=== PATIENT | male | born 1980 | race Caucasian/White ===

== ENCOUNTER 2020-10-28 16:59 | Emergency (ER) | payer BC ==
[~2020-10-28] VITALS: Ht 172.7 cm; Wt 99.8 kg
[2020-10-28] MEDS ORDERED: propofol 10mg/ml 20ml vial IV ONE (17:15)
[2020-10-28] MEDS ORDERED: fentaNYL/PF 50MCG/1 ML 2ML syringe IV ONE (19:00)
[2020-10-28] MEDS ORDERED: HYDROcodone/acetaminophen 10/325mg tab PO ONE (19:00)
[2020-10-28] MEDS ORDERED: HYDR-3972 PO (19:01)
[2020-10-28 19:14] VITALS: BP 213/126
== END 2020-10-28 19:48 | disposition home or self-care (01) ==
LOC: ER 17:00
DX: S82.851A Displaced trimalleolar fracture of right lower leg, initial encounter for closed fracture (principal); S93.04XA Dislocation of right ankle joint, initial encounter; S80.212A Abrasion, left knee, initial encounter; Z79.899 Other long term (current) drug therapy; V00.131A Fall from skateboard, initial encounter; Y93.51 Activity, roller skating (inline) and skateboarding; Y92.89 Other specified places as the place of occurrence of the external cause; Y99.8 Other external cause status
CPT/HCPCS: 27818; 73600; 96374; 99152; 99285; J3010; 99153

== ENCOUNTER 2020-11-14 07:24 | Inpatient (IN) | payer BC ==
[2020-11-10 15:19] LABS: BASOPHILS % (AUTO) 0.5 % (0-1); EOSINOPHILS # (AUTO) 0.1 X10'3 (0-0.9); EOSINOPHILS % (AUTO) 1.7 % (0-6); LYMPHOCYTES # (AUTO) 1.8 X10'3 (1.1-4.8); MEAN CORPUSCULAR HEMOGLOBIN 28.4 PG (27.0-31.0); MEAN CORPUSCULAR HGB CONC 33.4 g/dL (33.0-36.5); MEAN CORPUSCULAR VOLUME 85.1 FL (78-98); MEAN PLATELET VOLUME 7.9 FL (7.4-10.4); MONOCYTES # (AUTO) 0.6 X10'3 (0-0.9); MONOCYTES % (AUTO) 7.6 % (2-12); NEUTROPHILS # (AUTO) 5.8 X10'3 (1.8-7.7); NEUTROPHILS % (AUTO) 69.2 % (42-75); PRE OP HEMATOCRIT 48.4 % (42.0-52.0); PRE OP HEMOGLOBIN 16.2 g/dL (14.0-17.9); PRE OP PLATELET COUNT 339 X10'3 (140-440); RED BLOOD COUNT 5.69 X10'6 (4.70-6.10)
[2020-11-10 15:35] LABS: ALBUMIN 4.4 G/DL (3.4-5.0); ALBUMIN/GLOBULIN RATIO 1.2 (1.1-1.5); ALKALINE PHOSPHATASE 97 IU/L (46-116); BLOOD UREA NITROGEN 21 MG/DL (7-18); BUN/CREATININE RATIO 16.7 (5.4-32.0); CALCIUM 9.8 MG/DL (8.5-10.1); CHLORIDE 103 MMOL/L (99-107); CREATININE 1.26 MG/DL (0.60-1.10); PRE OP ALT 58 U/L (30-65); PRE OP ANION GAP 9 (8-16); PRE OP AST 25 U/L (10-37); PRE OP BILIRUB, TOTAL 1.1 MG/DL (0.0-1.0); PRE OP GLUCOSE 97 MG/DL (70-104); PRE OP POTASSIUM 3.9 MMOL/L (3.4-5.1); PRE OP SODIUM 138 MMOL/L (135-145); TOTAL CARBON DIOXIDE 26.3 MMOL/L (24-32); TOTAL PROTEIN 8.2 G/DL (6.4-8.2); eGFR 63 ML/MIN
[2020-11-14] VITALS (32 sets, daily range): BP systolic 134–206; BP diastolic 89–136
[~2020-11-14] VITALS: Ht 172.7 cm; Wt 96.0 kg
[~2020-11-14 07:24] MED LIST: ASCO-134 PO; GREE150C PO; MULT-1085 PO; OMEG-79 PO; cefazolin/dext.iso 2gm/100ml IV ONE; famotidine 20mg tablet PO ONE; ringers solution, lacted 1,000 ML IV SCH
[2020-11-14] MEDS ORDERED: BUPIVAcaine/PF 2.5 mg/ml (0.25%) 30ml vial ONE (08:36)
[2020-11-14] MEDS ORDERED: diazepam 5mg tablet PO ONE (09:45)
[2020-11-14] MEDS ORDERED: hydrALAZINE 20mg/ml inj. IV ONE ×3 (10:45→10:49)
[2020-11-14] MEDS ORDERED: sevoflurane 250ml liquid IH ONE (12:58)
[2020-11-14] MEDS ORDERED: fentaNYL/PF 50MCG/1 ML 2ML syringe ONE (13:00)
[2020-11-14] MEDS ORDERED: MIDAZolam 1 MG/ML 5ML VIAL ONE (13:01)
[2020-11-14] MEDS ORDERED: labetalol 20mg/4ml (5mg/ml) syringe IV ONE (13:03)
[2020-11-14] MEDS ORDERED: propofol inj 20 ML IV ONE (13:04)
[2020-11-14] MEDS ORDERED: ROPIVAcaine 0.5% (5mg/ml) 30ml vial ONE (13:10)
[2020-11-14] MEDS ORDERED: morphine 2 MG/ML inj. syringe IV PRN ×3 (13:35→18:05)
[2020-11-14] MEDS ORDERED: ringers solution, lacted 1,000 ML IV SCH (13:35)
[2020-11-14] MEDS ORDERED: ondansetron/PF 4mg/2ml inj IV PRN ×2 (13:35→18:05)
[2020-11-14] MEDS ORDERED: meperidine/PF 25mg/ml syringe IV PRN ×3 (13:35)
[2020-11-14] MEDS ORDERED: morphine 4 MG/ML inj SYRINge IV PRN (13:35)
--- NOTE | 2020-11-14 13:50 | NUR ---
Received from OR via PACU, accompanied by Anesthesiologist RICHARD and report given by Anesthesiolgist. PT DROWSY. OXYGENATING WELL ON 10 LPM O2 VIA MASK, NO RESP DISTRESS NOTED. PT STATES HIS R FOOT DOESNT HURT BUT HE HAS A BAD HEADAC HE. NO NAUSEA. LARGE SPLINT TO RLE COVERED WITH MARK, CDI. TOES PWD. RLE ELEVATED. PT BP IS OUT OF CONTROL, NOTIFIED DR RAMOS. WILL TREAT NEEDED AND CONTINUE TO MONITOR.
[2020-11-14] MEDS: hydrALAZINE 20mg/ml inj. IV PRN ×4 (14:42→18:06)
[2020-11-14] MEDS: labetalol 5mg/ml 20ml inj. IV PRN ×4 (15:00→16:15)
--- NOTE | 2020-11-14 17:27 | NUR ---
TOOK OVER PATIENTS CARE FROM TANIYA STARR. Addendum: 11/14/20 at 1728 by Velia Berry RN Amended: Links added.
[2020-11-14] MEDS: amLODIPine 5mg tablet PO SCH (18:05)
[2020-11-14] MEDS ORDERED: acetaminophen 325mg tablet PO PRN ×2 (18:05)
[2020-11-14] MEDS ORDERED: acetaminophen 650mg rectal suppository RC PRN (18:05)
[2020-11-14] MEDS ORDERED: magnesium 2GM in 50ml NS 50 ML IV PRN (18:05)
[2020-11-14] MEDS ORDERED: bisacodyl 10mg suppository rectal RC PRN (18:05)
[2020-11-14] MEDS ORDERED: magnesium Cl slow-release 64mg tablet PO PRN (18:05)
[2020-11-14] MEDS ORDERED: mag hydrox/Alum hydrox/simeth 30ml oral suspension PO PRN (18:05)
[2020-11-14] MEDS ORDERED: potassium Cl 20 mEq SR tablet PO PRN ×2 (18:05)
[2020-11-14] MEDS ORDERED: magnesium hydroxide 30ml (MOM) UD suspension PO PRN (18:05)
[2020-11-14] MEDS ORDERED: HYDROmorphone inj. 0.5 MG/0.5 ML DISP.SYRIN IV PRN (18:05)
[2020-11-14] MEDS ORDERED: PERFLUTREN PROTEIN-A MICROSPHR (Optison) 0.22 MG/ML 3ML VIAL IV ONE (18:05)
[2020-11-14] MEDS ORDERED: hydrALAZINE 20mg/ml inj. IV PRN (18:05)
[2020-11-14] MEDS ORDERED: magnesium 4gm in 100ml NS 100 ML IV PRN (18:05)
[2020-11-14] MEDS ORDERED: diphenhydrAMINE 25mg capsule PO PRN (18:05)
[2020-11-14] MEDS: chlorthalidone 25mg tablet PO SCH (18:05)
[2020-11-14] MEDS ORDERED: potassium Cl 40MEQ/1/2NS 520ml 520 ML IV PRN ×2 (18:05)
--- NOTE | 2020-11-14 18:34 | NUR ---
Patient experiencing increased anxiety. MD notified (Dr. Rivera), per MD Ativan 1mg q6hr PRN ordered. Will cont.. to monitor patient per hospital policy.
--- NOTE | 2020-11-14 18:49 | NUR ---
PT HAS HAD MAX DOSES OF LABETALOL AND HYDRALAZINE, BP CONTINUES TO BE UNMANAGEABLE AND UNSAFE. NOTIFIED DR BENITEZ AND DR RAMOS. CONSULT BY DR THOMASON, PT ADMITTED TO PCU. TROPONINS DRAWN. EKG ABNORMAL WITH T WAVE CHANGES NOTED. UNCHANGED FROM PREOP EKG. PT HAD EMESIS, FEELS BETTER NOW. HEADACHE WAS RESOLVING BUT IS NOW COMING BACK, PT STATES IT IS PRETTY BAD.
[2020-11-14 19:04] LABS: CLARITY,URINE CLEAR (Clear); COLOR,URINE YELLOW (Yellow); GLUCOSE, URINE NEGATIVE (Neg); KETONES,URINE NEGATIVE (Neg); LEUKOCYTE ESTERASE ,URINE NEGATIVE (Neg); NITRITES, URINE NEGATIVE (Neg); OCCULT BLOOD,URINE NEGATIVE (Neg); PH,URINE 6.5 (4.8-8.0); PROTEIN,URINE NEGATIVE (Neg); UA COLLECTION TYPE NON-SPECIFIED; UROBILINOGEN,URINE 0.2 E.U/dL (0.2-1.0)
--- NOTE | 2020-11-14 19:13 | NUR ---
BP 178/125, PT C/O WORSENING HEADACHE. NOTIFIED DR THOMASON. HE WILL ORDER A DRIP FOR PCU TO CONTROL HIS BP.
[2020-11-14 19:17] LABS: URINE AMPHETAMINE SCREEN NEGATIVE (Neg); URINE BARBITUATE SCREEN NEGATIVE (Neg); URINE BENZODIAZEPINES SCREEN POSITIVE (Neg); URINE CANNABINOID SCREEN NEGATIVE (Neg); URINE COCAINE SCREEN NEGATIVE (Neg); URINE METHADONE SCREEN NEGATIVE (Neg); URINE OPIATE SCREEN POSITIVE (Neg); URINE PHENCYCLIDINE SCREEN NEGATIVE (Neg)
[2020-11-14] MEDS: metoprolol succinate 25mg (24-HOUR) SR. Tablet PO SCH (19:25)
[2020-11-14] MEDS: heparin, porcine 5000 units/ml vial SQ SCH (20:00)
[2020-11-14] MEDS: K and/or MAG REPLACEMENT MC SCH (20:00)
--- NOTE | 2020-11-14 20:30 | NUR ---
PATIENT TRANSFERRED FROM PACU IN STABLE CONDITION AFTER REPORT GIVEN TO NURSE TAKING OVER PATIENTS CARE. PATIENT TANSPORTED VIA AMAIRANI WITH TANIYA. Addendum: 11/14/20 at 2101 by Velia Berry RN Amended: Links added.
[2020-11-14] MEDS ORDERED: LORazepam 2 mg/ml vial IV PRN (20:35)
--- NOTE | 2020-11-14 20:40 | NUR ---
I have received report via telephone from DAVID RN in PAS unit and had the opportunity to ask questions over the phone before transfer to Tele.
--- NOTE | 2020-11-14 20:50 | NUR ---
Patient arrived to the floor via gurney with Kecia RN from PAS unit in stable condition, patients mother is at bedside. All personal belongings are in patient assigned closet. Will cont.. to monitor per hospital policy.
[2020-11-14] MEDS ORDERED: temazepam 15mg capsule PO PRN (21:00)
[2020-11-14] MEDS: niCARDipine-NS 40mg/200ml IVPB 200 ML IV SCH (21:34)
[2020-11-14] MEDS ORDERED: metoprolol tartrate 1mg/ml inj IV PRN (21:35)
[2020-11-14] MEDS ORDERED: nitroGLYCERIN 0.4mg SUBLingual tab SL PRN (21:35)
[2020-11-14] MEDS ORDERED: aminophylline 250mg/10ml inj. IV PRN (21:35)
[2020-11-14] MEDS ORDERED: regadenoson 0.4mg/5ml syringe IV ONE (21:35)
--- NOTE | 2020-11-14 23:01 | NUR ---
(Dr. Rivera) notified patients BP 134/90. Per Nicardipine drip to be turned off. Will cont.. to monitor per hospital policy.
[2020-11-14] MEDS: HYDROcodone/acetaminophen 10/325mg tab PO PRN (23:17)
--- NOTE | 2020-11-14 23:53 | NUR ---
(Dr. Rivera) notified Patients BP increased to 172/109 in 52mins. Per MD Nicardipine drip to be started back up at 12.5mls/hr. Will cont.. to monitor per hospital policy.
[2020-11-15] VITALS (21 sets, daily range): BP systolic 127–161; BP diastolic 66–99
--- NOTE | 2020-11-15 00:05 | NUR ---
Nicardipine drip started at 2130 @25ml/hr per protocol. Patients SBP 187, DBP 111. Will cont.. to monitor per hospital policy.
[2020-11-15 01:44] LABS: BASOPHILS % (AUTO) 0.3 % (0-1); EOSINOPHILS % (AUTO) 0.1 % (0-6); HEMATOCRIT 43.3 % (42.0-52.0); HEMOGLOBIN 14.8 g/dl (14.0-17.9); LYMPHOCYTES # (AUTO) 0.8 X10'3 (1.1-4.8); LYMPHOCYTES % (AUTO) 8.8 % (21-51); MEAN CORPUSCULAR HEMOGLOBIN 28.9 PG (27.0-31.0); MEAN CORPUSCULAR HGB CONC 34.2 g/dL (33.0-36.5); MEAN CORPUSCULAR VOLUME 84.6 FL (78-98); MEAN PLATELET VOLUME 8.2 FL (7.4-10.4); MONOCYTES # (AUTO) 0.4 X10'3 (0-0.9); MONOCYTES % (AUTO) 4.8 % (2-12); NEUTROPHILS # (AUTO) 7.9 X10'3 (1.8-7.7); PLATELET COUNT 258 X10'3 (140-440); RED BLOOD COUNT 5.12 X10'6 (4.70-6.10); RED CELL DISTRIBUTION WIDTH 14.9 % (11.5-14.5); WHITE BLOOD COUNT 9.2 X10'3 (4.5-11.0)
[2020-11-15 01:50] LABS: ALANINE AMINOTRANSFERASE 44 U/L (12-78); ALBUMIN 3.8 G/DL (3.4-5.0); ALBUMIN/GLOBULIN RATIO 1.1 (1.1-1.5); ALKALINE PHOSPHATASE 83 IU/L (46-116); ANION GAP 10 (8-16); ASPARTATE AMINO TRANSFERASE 21 U/L (10-37); BLOOD UREA NITROGEN 18 MG/DL (7-18); BUN/CREATININE RATIO 19.4 (5.4-32.0); CALCIUM 8.5 MG/DL (8.5-10.1); CHLORIDE 101 MMOL/L (99-107); CREATININE 0.93 MG/DL (0.60-1.10); GLUCOSE 134 MG/DL (70-104); POTASSIUM 3.6 MMOL/L (3.5-5.1); SODIUM 134 MMOL/L (135-145); TOTAL PROTEIN 7.2 G/DL (6.4-8.2); eGFR 90 ML/MIN
[2020-11-15 01:57] LABS: CHOL/HDL RATIO 4.4 (0.00-4.99); CHOLESTEROL 154 MG/DL (0-200); HDL CHOLESTEROL 35 MG/DL (35-60); LDL CHOLESTEROL 107 MG/DL (50-100); PHOSPHORUS 3.4 MG/DL (2.3-4.5); TRIGLYCERIDES 73 MG/DL (20-135)
[2020-11-15] MEDS: HYDROcodone/acetaminophen 10/325mg tab PO PRN ×3 (03:37→12:56)
--- NOTE | 2020-11-15 06:12 | NUR ---
Problems reprioritized. Patient report given, questions answered & plan of care reviewed with Adriana MONAHAN.
--- NOTE | 2020-11-15 06:20 | NUR ---
Patient in room PCU 3025. I have received report from Jocelyn MONAHAN and had the opportunity to ask questions and assume patient care.
--- NOTE | 2020-11-15 06:36 | NUR ---
Problems reprioritized. Patient report given, questions answered & plan of care reviewed with Adriana Moraes RN.
[2020-11-15] MEDS: multivitamins, therapeutics tablet PO SCH (07:51)
[2020-11-15] MEDS: ascorbic acid 500mg tablet PO SCH (07:52)
[2020-11-15] MEDS: amLODIPine 5mg tablet PO SCH (07:52)
[2020-11-15] MEDS: metoprolol succinate 25mg (24-HOUR) SR. Tablet PO SCH (07:52)
[2020-11-15] MEDS: heparin, porcine 5000 units/ml vial SQ SCH ×2 (07:54→19:44)
[2020-11-15] MEDS: K and/or MAG REPLACEMENT MC SCH ×2 (08:00→19:44)
[2020-11-15] MEDS: niCARDipine-NS 40mg/200ml IVPB 200 ML IV SCH ×2 (11:08→11:50)
--- NOTE | 2020-11-15 11:51 | NUR ---
Paged Pharmacy Please send pts Chlorthalidone Thank you
[2020-11-15] MEDS: pantoprazole 40 MG vial IV SCH (12:56)
[2020-11-15] MEDS: chlorthalidone 25mg tablet PO SCH (12:56)
--- NOTE | 2020-11-15 13:14 | NUR ---
Paged Dr. Diaz PAGER ID: [phone] MESSAGE: Re: Jaren Gunter [id number]. Lab called re, orders from Giovanny .Please Advise Adriana MONAHAN [phone]
[2020-11-15] MEDS ORDERED: iohexol 300mg/ml 100ml inj. ONE (13:55)
[2020-11-15] MEDS ORDERED: labetalol 100mg tablet PO PRN (15:50)
[2020-11-15] MEDS ORDERED: minoxidil 2.5mg tablet PO PRN (15:50)
[2020-11-15 16:19] LABS: TOTAL PROTEIN,URINE RANDOM 15.1 MG/DL
[2020-11-15 16:33] LABS: PHOS, URINE RANDOM 143.8 MG/DL
[2020-11-15 17:17] LABS: UA EOSINOPHILS NO EOS /HPF
--- NOTE | 2020-11-15 18:20 | NUR ---
Patient in room PCU 3025. I have received report from TANIYA AGUYAO and had the opportunity to ask questions and assume patient care.
--- NOTE | 2020-11-15 18:31 | NUR ---
Problems reprioritized. Patient report given, questions answered & plan of care reviewed with Cece MONAHAN .
[2020-11-16] MEDS: niCARDipine-NS 40mg/200ml IVPB 200 ML IV SCH ×2 (01:46→10:58)
[2020-11-16 02:00] VITALS: BP 147/87
[2020-11-16] MEDS: HYDROcodone/acetaminophen 10/325mg tab PO PRN ×2 (05:41→21:06)
--- NOTE | 2020-11-16 06:03 | NUR ---
Problems reprioritized. Patient report given, questions answered & plan of care reviewed with TANIYA CARLTON.
[2020-11-16 06:06] LABS: BASOPHILS % (AUTO) 0.5 % (0-1); EOSINOPHILS # (AUTO) 0.1 X10'3 (0-0.9); EOSINOPHILS % (AUTO) 1.4 % (0-6); HEMATOCRIT 45.4 % (42.0-52.0); HEMOGLOBIN 15.4 g/dl (14.0-17.9); LYMPHOCYTES # (AUTO) 1.3 X10'3 (1.1-4.8); LYMPHOCYTES % (AUTO) 18.3 % (21-51); MEAN CORPUSCULAR HGB CONC 33.9 g/dL (33.0-36.5); MEAN CORPUSCULAR VOLUME 85.5 FL (78-98); MEAN PLATELET VOLUME 8.1 FL (7.4-10.4); MONOCYTES # (AUTO) 0.7 X10'3 (0-0.9); MONOCYTES % (AUTO) 9.6 % (2-12); NEUTROPHILS # (AUTO) 5.1 X10'3 (1.8-7.7); NEUTROPHILS % (AUTO) 70.2 % (42-75); PLATELET COUNT 275 X10'3 (140-440); RED BLOOD COUNT 5.31 X10'6 (4.70-6.10); RED CELL DISTRIBUTION WIDTH 15.1 % (11.5-14.5); WHITE BLOOD COUNT 7.2 X10'3 (4.5-11.0)
[2020-11-16 06:34] LABS: ALANINE AMINOTRANSFERASE 40 U/L (12-78); ALBUMIN 3.9 G/DL (3.4-5.0); ALBUMIN/GLOBULIN RATIO 1.1 (1.1-1.5); ALKALINE PHOSPHATASE 86 IU/L (46-116); ANION GAP 9 (8-16); ASPARTATE AMINO TRANSFERASE 18 U/L (10-37); BILIRUBIN,TOTAL 2.3 MG/DL (0.1-1.0); BLOOD UREA NITROGEN 17 MG/DL (7-18); BUN/CREATININE RATIO 18.5 (5.4-32.0); CALCIUM 8.7 MG/DL (8.5-10.1); CHLORIDE 104 MMOL/L (99-107); CREATININE 0.92 MG/DL (0.60-1.10); GLUCOSE 100 MG/DL (70-104); MAGNESIUM 2.2 MG/DL (1.5-2.4); PHOSPHORUS 2.9 MG/DL (2.3-4.5); POTASSIUM 3.7 MMOL/L (3.5-5.1); SODIUM 138 MMOL/L (135-145); TOTAL CARBON DIOXIDE 25.4 MMOL/L (24-32); TOTAL PROTEIN 7.3 G/DL (6.4-8.2); eGFR > 90 ML/MIN
[2020-11-16 07:00] VITALS: BP 155/103
[2020-11-16] MEDS: pantoprazole 40 MG vial IV SCH (07:21)
[2020-11-16] MEDS: K and/or MAG REPLACEMENT MC SCH ×2 (07:21→20:00)
[2020-11-16] MEDS: ascorbic acid 500mg tablet PO SCH (07:21)
[2020-11-16] MEDS: multivitamins, therapeutics tablet PO SCH (07:21)
[2020-11-16] MEDS: metoprolol succinate 25mg (24-HOUR) SR. Tablet PO SCH (07:22)
[2020-11-16] MEDS: heparin, porcine 5000 units/ml vial SQ SCH ×2 (07:22→20:12)
[2020-11-16 11:00] VITALS: BP 149/98
[2020-11-16] MEDS: HYDROcodone/acetaminophen 5mg/325mg tablet PO PRN (11:08)
[2020-11-16] MEDS ORDERED: hydrALAZINE 20mg/ml inj. IV PRN (11:45)
[2020-11-16] MEDS ORDERED: hydrALAZINE 20mg/ml inj. IV ONE (11:45)
[2020-11-16] MEDS: amLODIPine 5mg tablet PO SCH (11:58)
[2020-11-16 15:00] VITALS: BP 129/81
[2020-11-16] MEDS ORDERED: propranolol 10mg tablet PO ONE (15:00)
[2020-11-16 18:00] VITALS: BP 147/95
--- NOTE | 2020-11-16 18:20 | NUR ---
Patient in room PCU 3025. I have received report from TANIYA CARLTON and had the opportunity to ask questions and assume patient care.
[2020-11-16] MEDS: propranolol 10mg tablet PO SCH (20:12)
[2020-11-16 22:00] VITALS: BP 134/92
[2020-11-17] MEDS: HYDROcodone/acetaminophen 10/325mg tab PO PRN (01:51)
[2020-11-17 02:00] VITALS: BP 143/93
--- NOTE | 2020-11-17 06:21 | NUR ---
Problems reprioritized. Patient report given, questions answered & plan of care reviewed with TANIYA CARLTON.
[2020-11-17 07:00] LABS: BASOPHILS % (AUTO) 0.6 % (0-1); EOSINOPHILS # (AUTO) 0.1 X10'3 (0-0.9); EOSINOPHILS % (AUTO) 2.1 % (0-6); HEMATOCRIT 45.3 % (42.0-52.0); HEMOGLOBIN 15.4 g/dl (14.0-17.9); LYMPHOCYTES # (AUTO) 1.7 X10'3 (1.1-4.8); MEAN CORPUSCULAR HEMOGLOBIN 28.9 PG (27.0-31.0); MEAN CORPUSCULAR HGB CONC 33.9 g/dL (33.0-36.5); MEAN CORPUSCULAR VOLUME 85.1 FL (78-98); MEAN PLATELET VOLUME 8.1 FL (7.4-10.4); MONOCYTES # (AUTO) 0.5 X10'3 (0-0.9); MONOCYTES % (AUTO) 9.7 % (2-12); NEUTROPHILS % (AUTO) 55.6 % (42-75); PLATELET COUNT 248 X10'3 (140-440); RED BLOOD COUNT 5.32 X10'6 (4.70-6.10); RED CELL DISTRIBUTION WIDTH 14.8 % (11.5-14.5); WHITE BLOOD COUNT 5.4 X10'3 (4.5-11.0)
[2020-11-17 07:04] VITALS: BP 135/76
[2020-11-17] MEDS: propranolol 10mg tablet PO SCH (07:17)
[2020-11-17 07:18] VITALS: BP_SYST 135
[2020-11-17] MEDS: amLODIPine 5mg tablet PO SCH (07:18)
[2020-11-17] MEDS: multivitamins, therapeutics tablet PO SCH (07:18)
[2020-11-17] MEDS: ascorbic acid 500mg tablet PO SCH (07:18)
[2020-11-17] MEDS: heparin, porcine 5000 units/ml vial SQ SCH (07:19)
[2020-11-17] MEDS: HYDROcodone/acetaminophen 5mg/325mg tablet PO PRN (07:22)
[2020-11-17 07:24] LABS: ALANINE AMINOTRANSFERASE 38 U/L (12-78); ALBUMIN 3.7 G/DL (3.4-5.0); ALBUMIN/GLOBULIN RATIO 1.1 (1.1-1.5); ALKALINE PHOSPHATASE 82 IU/L (46-116); ANION GAP 8 (8-16); ASPARTATE AMINO TRANSFERASE 19 U/L (10-37); BLOOD UREA NITROGEN 19 MG/DL (7-18); BUN/CREATININE RATIO 18.6 (5.4-32.0); CALCIUM 8.8 MG/DL (8.5-10.1); CHLORIDE 104 MMOL/L (99-107); CREATININE 1.02 MG/DL (0.60-1.10); GLUCOSE 88 MG/DL (70-104); MAGNESIUM 2.1 MG/DL (1.5-2.4); PHOSPHORUS 3.4 MG/DL (2.3-4.5); POTASSIUM 3.8 MMOL/L (3.5-5.1); SODIUM 138 MMOL/L (135-145); TOTAL CARBON DIOXIDE 26.3 MMOL/L (24-32); TOTAL PROTEIN 7.1 G/DL (6.4-8.2); eGFR 80 ML/MIN
[2020-11-17] MEDS ORDERED: pantoprazole 40mg Tablet.DR PO SCH (07:30)
[2020-11-17] MEDS: K and/or MAG REPLACEMENT MC SCH (08:00)
[2020-11-17] MEDS ORDERED: PROP10TA10 PO (08:24)
[2020-11-17] MEDS ORDERED: NOR5T PO (08:24)
[2020-11-17] MEDS ORDERED: PANT40TA54 PO (08:24)
--- NOTE | 2020-11-17 10:38 | NUR ---
Patient was discharged at 0945 home with mom. Patient reviewed packet before signing, all belongings sent with patient. New RX faxed to [facility], patient was wheeled down by staff and left via private vehicle.
--- NOTE | 2020-11-17 11:15 | NUR ---
promotional table spacer PAGER ID: [phone] MESSAGE: Christian [phone]. Pt was discharged and called regarding a [facility] as he had been taking them here for pain and was not discharged with them. Please adviseSandra [phone]
[2020-11-17] MEDS ORDERED: HYDR-3965 PO (15:16)
== END 2020-11-17 09:48 | disposition home or self-care (01) | DRG 305 ==
LOC: PAS 07:24 → PCU 3S 08:30
PROVIDERS: ADMIT Orthopaedic Surgery; ATTEND Orthopaedic Surgery
PROC: 2W0SX1Z Change Splint on Right Foot (ICD-10-PCS; 2020-11-14)
PROC: 4A02XM4 Measurement of Cardiac Total Activity, External Approach (ICD-10-PCS; principal; 2020-11-15)
PROC: 3E073KZ Introduction of Other Diagnostic Substance into Coronary Artery, Percutaneous Approach (ICD-10-PCS; 2020-11-15)
PROC: BW211ZZ Computerized Tomography (CT Scan) of Abdomen and Pelvis using Low Osmolar Contrast (ICD-10-PCS; 2020-11-15)
DX: I16.1 Hypertensive emergency (principal); E11.9 Type 2 diabetes mellitus without complications; E78.00 Pure hypercholesterolemia, unspecified; E87.6 Hypokalemia; F41.9 Anxiety disorder, unspecified; I15.9 Secondary hypertension, unspecified; E05.90 Thyrotoxicosis, unspecified without thyrotoxic crisis or storm; R77.8 Other specified abnormalities of plasma proteins; Z20.822 Contact with and (suspected) exposure to COVID-19; Z79.899 Other long term (current) drug therapy; Z80.8 Family history of malignant neoplasm of other organs or systems; Z82.49 Family history of ischemic heart disease and other diseases of the circulatory system; S93.04XD Dislocation of right ankle joint, subsequent encounter
CPT/HCPCS: 93306; Z7506; 36415; 70450; 71045; 74178; 76536; 78452; 80053; 80061; 80305; 81003; 82043; 82384; 82570; 82948; 83036; 83735; 84100; 84105; 84133; 84145; 84156; 84244; 84300; 84439; 84443; 84480; 84484; 84540; 84585; 85025; 87081; 87207; 87635; 93005; 93017; A4215; A4618; A6449; A7000; A9500; C9113; G0378; J0280; J0360; J1644; J2060; J2175; J2250; J2270; J2704; J2785; J2795; J3010; J3490; J7120; Q9967

== ENCOUNTER → 2020-12-03 | Day surgery (SDC) | payer BC ==
[2020-12-01 11:56] LABS: BASOPHILS % (AUTO) 0.6 % (0-1); EOSINOPHILS # (AUTO) 0.1 X10'3 (0-0.9); EOSINOPHILS % (AUTO) 2.1 % (0-6); LYMPHOCYTES # (AUTO) 1.6 X10'3 (1.1-4.8); LYMPHOCYTES % (AUTO) 22.6 % (21-51); MEAN CORPUSCULAR HEMOGLOBIN 28.8 PG (27.0-31.0); MEAN CORPUSCULAR HGB CONC 33.9 g/dL (33.0-36.5); MEAN CORPUSCULAR VOLUME 85.1 FL (78-98); MEAN PLATELET VOLUME 8.5 FL (7.4-10.4); MONOCYTES # (AUTO) 0.6 X10'3 (0-0.9); MONOCYTES % (AUTO) 7.9 % (2-12); NEUTROPHILS # (AUTO) 4.6 X10'3 (1.8-7.7); NEUTROPHILS % (AUTO) 66.8 % (42-75); PRE OP HEMATOCRIT 48.4 % (42.0-52.0); PRE OP HEMOGLOBIN 16.4 g/dL (14.0-17.9); PRE OP PLATELET COUNT 264 X10'3 (140-440); RED BLOOD COUNT 5.68 X10'6 (4.70-6.10); RED CELL DISTRIBUTION WIDTH 14.7 % (11.5-14.5)
[2020-12-01 12:00] LABS: ALBUMIN 4.3 G/DL (3.4-5.0); ALBUMIN/GLOBULIN RATIO 1.2 (1.1-1.5); ALKALINE PHOSPHATASE 95 IU/L (46-116); BLOOD UREA NITROGEN 18 MG/DL (7-18); BUN/CREATININE RATIO 13.4 (5.4-32.0); CALCIUM 9.2 MG/DL (8.5-10.1); CHLORIDE 105 MMOL/L (99-107); CREATININE 1.34 MG/DL (0.60-1.10); PRE OP ANION GAP 9 (8-16); PRE OP AST 29 U/L (10-37); PRE OP BILIRUB, TOTAL 1.9 MG/DL (0.0-1.0); PRE OP GLUCOSE 97 MG/DL (70-104); PRE OP POTASSIUM 4.2 MMOL/L (3.4-5.1); PRE OP SODIUM 140 MMOL/L (135-145); TOTAL CARBON DIOXIDE 26.3 MMOL/L (24-32); TOTAL PROTEIN 7.8 G/DL (6.4-8.2); eGFR 59 ML/MIN
[2020-12-01 12:04] LABS: PRE OP ALT 96 U/L (30-65)
[~2020-12-03] VITALS: Ht 172.7 cm; Wt 95.9 kg
[2020-12-03] VITALS (10 sets, daily range): BP systolic 130–158; BP diastolic 85–106
[~2020-12-03] MED LIST changes: +0.9 % SODIUM CHLORIDE 10 ML VIAL ONE; +AMLO5TAB16 PO; +BUPIVAcaine/PF 2.5 mg/ml (0.25%) 30ml vial ONE; +DOCUMENT DATE & TIME OF BETA-BLOCKER PO ONE; +LIDOcaine 2% (20mg/ml) 5ml vial ONE; +LISI20TA28 PO; +PANT40TA54 PO; +PROP10TA10 PO; +ROPIVAcaine 0.5% (5mg/ml) 30ml vial ONE; +acetaminophen 1,000mg/100ml IV 100 ML IV PRN; +dexamethasone sod phosphate 4mg/ml inj. ONE; +fentaNYL /PF 50mcg/ml 5ml ampule ONE; +hydrALAZINE 20mg/ml inj. IV PRN; +ketorolac trometh. 30mg/ml inj. IV ONE; +labetalol 20mg/4ml (5mg/ml) syringe IV PRN; +meperidine/PF 25mg/ml syringe IV PRN; +midazolam 1 mg/ML 2ml injection ONE; +morphine 2 MG/ML inj. syringe IV PRN; +morphine 4 MG/ML inj SYRINge IV PRN; +ondansetron/PF 4mg/2ml inj IV PRN; +ondansetron/PF 4mg/2ml inj ONE; +proCHLORperazine 10 MG/2 ml inj IV PRN; +propofol 10mg/ml 20ml vial IV ONE; +propofol inj 20 ML IV ONE; +sevoflurane 250ml liquid IH ONE; +vancomycin 1,000mg inj ONE
--- NOTE | 2020-12-03 19:38 | NUR ---
Received from OR via , accompanied by Anesthesiologist DR STANLEY and report given by Anesthesiolgist. PT PRESENTS WITH 20G RIGHT WRIST, DRESSING AND CAST ON RIGHT FOOT/ANKLE, VSS. Addendum: 12/03/20 at 1940 by Tabatha Marte RN, RN Amended: Links added.
--- NOTE | 2020-12-03 20:48 | NUR ---
DISCHARGE CRITERIA MET, DISCHARGE INSTRUCTIONS GIVEN, DEMONSTRATES VERBAL UNDERSTANDING. DISCHARGED HOME IN GOOD CONDITION. Addendum: 12/03/20 at 2116 by Tabatha Marte RN, RN Amended: Links added.
== END | disposition home or self-care (01) ==
LOC: PAS 11:47
PROVIDERS: ATTEND Orthopaedic Surgery
DX: S82.841A Displaced bimalleolar fracture of right lower leg, initial encounter for closed fracture (principal); G89.18 Other acute postprocedural pain; I10 Essential (primary) hypertension; K21.9 Gastro-esophageal reflux disease without esophagitis; Z79.899 Other long term (current) drug therapy; Z98.890 Other specified postprocedural states; V00.131A Fall from skateboard, initial encounter; Y93.89 Activity, other specified; Y92.89 Other specified places as the place of occurrence of the external cause; Y99.8 Other external cause status
CPT/HCPCS: 27814; 36415; 64445; 64447; 76942; 80053; 82948; 85025; 93005; C1713; J1100; J2001; J2250; J2405; J2704; J3010; J3370; J3490; J7120; A4215; A4618; A6449; A7000; J2795